=== PATIENT | female | born 1945 | race Hispanic/Latino ===

== ENCOUNTER 2016-08-13 15:40 | Inpatient (IN) | payer MEDICARE, MEDICAID ==
[2016-08-13] MEDS ORDERED: Albuterol-Ipratrop 3 mg / 0.5 (3 ml) UD IH STA ×2 (16:10)
--- NOTE | 2016-08-13 16:18 | ED PDOC ---
HPI: SOB/CHF/COPD Time Seen by Provider: 08/13/16 15:50 Chief Complaint (Nursing): Shortness Of Breath Chief Complaint (Provider): Shortness of Breath/Cough History Per: Patient History/Exam Limitations: no limitations Onset/Duration Of Symptoms: Days (x14) Current Symptoms Are (Timing): Still Present Additional Complaint(s): Aure Duong is a 71 year old female that was brought to the ED via EMS that presents with a chief complaint SOB and a productive cough with clear sputum with associated fever and chills that she has had for the past two weeks. Patient reports that she was initially seen by her PMD and treated for sinus infection/URI with antibiotics with only mild improvement. She denies any chest pain. Past Medical History Reviewed: Historical Data, Nursing Documentation, Vital Signs Vital Signs: Last Vital Signs Temp 98.5 F 08/13/16 15:45 Pulse 82 08/13/16 15:45 Resp 22 08/13/16 16:40 BP 172/103 H 08/13/16 15:45 Pulse Ox 99 08/13/16 16:22 - Medical History PMH: No Chronic Diseases - Family History Family History: States: Unknown Family Hx - Home Medications Home Medications: Ambulatory Orders Medication Instructions Recorded No Known Home Med 08/13/16 - Allergies Allergies/Adverse Reactions: Allergies Allergy/AdvReac Type Severity Reaction Status Date / Time No Known Allergies Allergy Verified 08/13/16 15:45 Review of Systems Constitutional: Positive for: Fever, Chills Cardiovascular: Negative for: Chest Pain Respiratory: Positive for: Cough (Productive with clear sputum), Shortness of Breath Physical Exam - Reviewed Nursing Documentation Reviewed: Yes Vital Signs Reviewed: Yes - Physical Exam Appears: Positive for: Non-toxic, No Acute Distress Head Exam: Positive for: ATRAUMATIC, NORMOCEPHALIC Skin: Positive for: Normal Color, Warm Cardiovascular/Chest: Positive for: Regular Rate, Rhythm. Negative for: Murmur Respiratory: Positive for: Rhonchi, Wheezing (mild expiratory wheezing, left lung greater than right). Negative for: Respiratory Distress Neurologic/Psych: Positive for: Alert, Oriented. Negative for: Motor/Sensory Deficits - Laboratory Results Result Diagrams: 08/13/16 16:34 - ECG O2 Sat by Pulse Oximetry: 99 (RA) Pulse Ox Interpretation: Normal Medical Decision Making Medical Decision Making: Impression: SOB/Cough Plan: * CMP * CBC * VBG Shock Panel * Blood Culture * EKG * Chest X-Ray * Albuterol 3 ml INH * Methylprednisolone 125 mg IVP * Reevaluation Scribe Attestation: Documented by Mary Crisostomo, acting as a scribe for Nakul Pak MD. Provider Scribe Attestation: All medical record entries made by the Scribe were at my direction and personally dictated by me. I have reviewed the chart and agree that the record accurately reflects my personal performance of the history, physical exam, medical decision making, and the department course for this patient. I have also personally directed, reviewed, and agree with the discharge instructions and disposition. Disposition - Clinical Impression Clinical Impression: Bronchitis - Patient ED Disposition Is Patient to be Admitted: Transfer of Care - Disposition Disposition: Transfer of Care Disposition Time: 16:59 Condition: FAIR Patient Signed Over To: Yadi Yen
[2016-08-13 16:49] LABS: ABG ALLEN TEST YES; ARTERIAL BLOOD GAS HCO3 26.4 mmol/L (21-28); ARTERIAL BLOOD GAS PH 7.42 (7.35-7.45); ARTERIAL BLOOD GAS PO2 99 mm/Hg (80-100)
[2016-08-13 16:51] LABS: BASO # 0.1 K/uL (0.0-0.2); BASO % 0.8 % (0.0-2.0); EOS # 0.6 K/uL (0.0-0.7); EOS % 5.9 % (0.0-4.0); HEMATOCRIT 44.7 % (34.0-47.0); LYMPH # 1.5 K/uL (1.0-4.3); LYMPH % 15.2 % (20.0-40.0); MEAN CELL VOLUME 92.2 fl (81.0-99.0); MEAN CORPUSCULAR HEMOGLOBIN 30.3 pg (27.0-31.0); MEAN CORPUSCULAR HGB CONC 32.9 g/dL (33.0-37.0); MEAN PLATELET VOLUME 9.6 fl (7.2-11.7); MONO # 0.7 K/uL (0.0-0.8); MONO % 7.3 % (0.0-10.0); NEUT # 7.1 K/uL (1.8-7.0); NEUT % 70.8 % (50.0-75.0); RED CELL DISTRIBUTION WIDTH 13.5 % (11.5-14.5)
--- NOTE | 2016-08-13 17:08 | ED PDOC ---
- Laboratory Results Result Diagrams: 08/14/16 05:00 08/14/16 05:00 - ECG O2 Sat by Pulse Oximetry: 99 (RA) - Radiology X-Ray: Viewed By Me, Read By Radiologist X-Ray Interpretation: COPD (See [facility] for findings.) Medical Decision Making Medical Decision Makin:00 Patient is signed out to me by Nakul Pak MD pending labs and reevaluation. 18:25 XRay chest read and reviewed by radiologist. FINDINGS: LUNGS: Hyperinflation may be seen in setting of COPD. No focal consolidation. Please note that chest x-ray has limited sensitivity for the detection of pulmonary masses. PLEURA: No significant pleural effusion identified. No definite pneumothorax . CARDIOVASCULAR: Heart size appears within normal limits. OSSEOUS STRUCTURES: Degenerative changes of the spine. Osseous demineralization. Kyphosis. VISUALIZED UPPER ABDOMEN: Unremarkable. OTHER FINDINGS: None. IMPRESSION: Hyperinflation may be seen in setting of COPD. 18:43 Patient states that she feels "shaky". still feesl sob. ordered another neb for her (she had gotten prior nebs and steroids eralier) Chest XRay shows that patient has COPD. Patient will likely be admitted to [facility] fitness sales consultant under Dr. Lau. Dr. Lau is contacted and accepts patient under his service. Scribe Attestation Documented by Ambar Granados, acting as a scribe for Yadi Yen MD. Provider Scribe Attestation: All medical record entries made by the Scribe were at my direction and personally dictated by me. I have reviewed the chart and agree that the record accurately reflects my personal performance of the history, physical exam, medical decision making, and the department course for this patient. I have also personally directed, reviewed, and agree with the discharge instructions and disposition. Disposition Counseled Patient/Family Regarding: Diagnosis - Clinical Impression Clinical Impression: Bronchitis - POA Present On Arrival: None - Disposition Disposition: Admitted as In-Patient Disposition Time: 18:00 Condition: FAIR
[2016-08-13 17:11] LABS: ALB/GLOB RATIO 1.7 (1.0-2.1); ALKALINE PHOSPHATASE 72 U/L (38-126); ALT/SGPT 27 U/L (9-52); AST/SGOT 29 U/L (14-36); BILIRUBIN,TOTAL 0.7 mg/dl (0.2-1.3); BLOOD UREA NITROGEN 11 mg/dl (7-17); CALCIUM 9.6 mg/dL (8.4-10.2); CARBON DIOXIDE 26 mmol/L (22-30); CHLORIDE 104 mmol/L (98-107); GFR AFRICAN-AMERICAN > 60; GLUCOSE,RANDOM 112 mg/dL (65-105); POTASSIUM 3.6 MMOL/L (3.6-5.0); SODIUM 141 mmol/l (132-148); TOTAL PROTEIN 7.6 G/DL (6.3-8.2)
--- NOTE | 2016-08-13 18:26 | RAD ---
HISTORY: cough COMPARISON: None available. TECHNIQUE: Chest PA and lateral FINDINGS: LUNGS: Hyperinflation may be seen in setting of COPD. No focal consolidation. Please note that chest x-ray has limited sensitivity for the detection of pulmonary masses. PLEURA: No significant pleural effusion identified. No definite pneumothorax . CARDIOVASCULAR: Heart size appears within normal limits. OSSEOUS STRUCTURES: Degenerative changes of the spine. Osseous demineralization. Kyphosis. VISUALIZED UPPER ABDOMEN: Unremarkable. OTHER FINDINGS: None. IMPRESSION: Hyperinflation may be seen in setting of COPD.
[2016-08-13] MEDS ORDERED: Albuterol 0.083% Inhal Sol (2.5 mg/3 mL) UD INH ONE (18:58)
[2016-08-13] MEDS ORDERED: Albuterol 0.083% Inhal Sol (2.5 mg/3 mL) UD ONE (19:02)
[2016-08-13] MEDS: Albuterol-Ipratrop 3 mg / 0.5 (3 ml) UD INH SCH (23:28)
[2016-08-14] MEDS ORDERED: methylPREDNISolone 40 MG in Sodium Chloride 0.9% 50 ML IV SCH (01:00)
[2016-08-14] MEDS: Artificial Tears Opht Soln OU PRN ×2 (01:49→10:27)
[2016-08-14] MEDS: Albuterol-Ipratrop 3 mg / 0.5 (3 ml) UD INH SCH ×6 (05:00→23:23)
[2016-08-14 06:48] LABS: BASO % 0.1 % (0.0-2.0); HEMATOCRIT 40.1 % (34.0-47.0); LYMPH # 0.4 K/uL (1.0-4.3); LYMPH % 4.3 % (20.0-40.0); MEAN CELL VOLUME 92.1 fl (81.0-99.0); MEAN CORPUSCULAR HEMOGLOBIN 30.2 pg (27.0-31.0); MEAN CORPUSCULAR HGB CONC 32.8 g/dL (33.0-37.0); MEAN PLATELET VOLUME 10.1 fl (7.2-11.7); MONO # 0.2 K/uL (0.0-0.8); MONO % 1.5 % (0.0-10.0); NEUT # 9.8 K/uL (1.8-7.0); NEUT % 94.1 % (50.0-75.0); PLATELET COUNT 215 K/uL (130-400); RED CELL DISTRIBUTION WIDTH 13.5 % (11.5-14.5); WHITE BLOOD COUNT 10.4 K/uL (4.8-10.8)
[2016-08-14 08:28] LABS: CHLORIDE 103 mmol/L (98-107)
[2016-08-14 08:29] LABS: POTASSIUM 3.7 MMOL/L (3.6-5.0); SODIUM 138 mmol/l (132-148)
[2016-08-14 08:31] LABS: ALB/GLOB RATIO 1.7 (1.0-2.1); AST/SGOT 22 U/L (14-36); BILIRUBIN,TOTAL 0.6 mg/dl (0.2-1.3); BLOOD UREA NITROGEN 9 mg/dl (7-17); CARBON DIOXIDE 25 mmol/L (22-30); CHOLESTEROL 172 mg/dL (0-199); GFR AFRICAN-AMERICAN > 60; GLUCOSE,RANDOM 174 mg/dL (65-105); TOTAL PROTEIN 6.4 G/DL (6.3-8.2)
[2016-08-14 08:32] LABS: ALKALINE PHOSPHATASE 61 U/L (38-126); ALT/SGPT 30 U/L (9-52); CALCIUM 9.3 mg/dL (8.4-10.2)
[2016-08-14 08:44] LABS: RBC URINE 3 /hpf (0-3); URINE BACTERIA RARE (<OCC); URINE BILIRUBIN NEGATIVE (NEGATIVE); URINE BLOOD NEGATIVE (NEGATIVE); URINE COLOR YELLOW (YELLOW); URINE GLUCOSE (UA) 50 mg/dL (Normal); URINE KETONE NEGATIVE (NEGATIVE); URINE LEUKOCYTE ESTERASE SMALL Leu/uL (Negative); URINE PROTEIN NEGATIVE (NEGATIVE); URINE UROBILINOGEN 0.2-1.0 mg/dL (0.2-1.0); WBC URINE 6 /hpf (0-5)
[2016-08-14 08:59] LABS: NEUTROPHIL 92 % (42-75); TOTAL CELLS COUNTED 100
[2016-08-14 09:03] LABS: T4 6.86 ug/dl (5.5-11.0)
[2016-08-14] MEDS: Pantoprazole 40 mg EC Tab PO SCH (09:03)
[2016-08-14 09:17] LABS: THYROID STIMULATING HORMONE 0.27 mIU/ML (0.46-4.68)
--- NOTE | 2016-08-14 13:26 | CARD ---
APPROVED REPORT EKG Measurement Heart [id number] <Conclusion> Normal sinus rhythm Left axis deviation Nonspecific intraventricular block Cannot rule out Septal infarct, age undetermined Possible infarct, age undetermined Abnormal ECG
--- NOTE | 2016-08-14 16:18 | CP.PCM.HP ---
History of Present Illness - History of Present Illness History of Present Illness: CC: SOB. Pt came to ER [facility] for evaluation of increased SOB, onset DOA with no relief. Pt appear c/o of mild SOB x 2 weeks, increased to moderate , FRANCO , associated to productive scant clear thick sputum, worsening symptoms: fever, chills for 2 weeks. Aggravated factor: Dyspnea at rest, current smoker. As per Pt, she was taking abx Rx by her PMD for Sinus infection and URI with very mild improvement. Pt denied: Bloody cough, syncope, dizziness, abdominal pain, n/v/d, CP, suck contact, recent travel. PMHx : COPD , " Heart attack 26 yrs old" CXR showed: COPD. No pleural effusion, pneumothorax or infiltrates. EKG shows: Normal sinus rhythm, cannot rule out septal infarct, age undetermined, possible infarct age undetermined. Present on Admission - Present on Admission Any Indicators Present on Admission: No Review of Systems - Constitutional Constitutional: Chills, Fever - EENT Eyes: Other (negative) Ears: Other (negative) Nose/Mouth/Throat: Other (negative) - Cardiovascular Cardiovascular: Other (negative) - Respiratory Respiratory: Cough, Dyspnea, Dyspnea on Exertion - Gastrointestinal Gastrointestinal: Other (negative) - Genitourinary Genitourinary: Other (negative) - Musculoskeletal Musculoskeletal: Other (negative) - Integumentary Integumentary: Other (negative) - Neurological Neurological: Headaches - Psychiatric Psychiatric: Other (negative) - Endocrine Endocrine: Other (negative) - Hematologic/Lymphatic Hematologic: Other (negative) Past Patient History - Past Medical History & Family History Past Medical History?: Yes Pertinent Family History: Unknown - Past Social History Smoking Status: Current Some Days Smoker Alcohol: None Drugs: Denies Home Situation {Lives}: Alone - CARDIAC Hx Heart Attack: Yes (" Heart Attack 26 yrs old") - PULMONARY Hx Chronic Obstructive Pulmonary Disease (COPD): Yes - NEUROLOGICAL Hx Neurological Disorder: No - HEENT Hx HEENT Problems: No - RENAL Hx Chronic Kidney Disease: No - ENDOCRINE/METABOLIC Hx Endocrine Disorders: No - HEMATOLOGICAL/ONCOLOGICAL Hx Blood Disorders: No - INTEGUMENTARY Hx Dermatological Problems: No - MUSCULOSKELETAL/RHEUMATOLOGICAL Hx Musculoskeletal Disorders: No Hx Falls: No - GASTROINTESTINAL Hx Gastrointestinal Disorders: No - GENITOURINARY/GYNECOLOGICAL Hx Genitourinary Disorders: No - PSYCHIATRIC Hx Psychophysiologic Disorder: No Hx Substance Use: No - SURGICAL HISTORY Hx Surgeries: Yes Hx Herniorrhaphy: Yes Hx Hysterectomy: Yes Hx Tonsillectomy: Yes Other/Comment: "BLADDER SX" - ANESTHESIA Hx Anesthesia: Yes Hx Anesthesia Reactions: No Meds Home Medications: Home Medication List Medication Instructions Recorded Confirmed Type Albuterol HFA [Ventolin HFA 90 2 puff IH [id number] #30 puff 08/14/16 Rx mcg/actuation (8 g)] Fluticasone/Salmeterol 250/50 1 puff IH Q12 #60 puff 08/15/16 Rx [Advair Diskus] Allergies/Adverse Reactions: Allergies Allergy/AdvReac Type Severity Reaction Status Date / Time No Known Allergies Allergy Verified 08/13/16 15:45 Physical Exam - Constitutional Appears: No Acute Distress - Head Exam Head Exam: NORMAL INSPECTION - Eye Exam Eye Exam: PERRL - ENT Exam ENT Exam: Normal Oropharynx - Neck Exam Neck exam: Positive for: Normal Inspection - Respiratory Exam Respiratory Exam: Decreased Breath Sounds, Rhonchi (scattered), Wheezes - Cardiovascular Exam Cardiovascular Exam: REGULAR RHYTHM - GI/Abdominal Exam GI & Abdominal Exam: Normal Bowel Sounds, Soft - Extremities Exam Extremities exam: Positive for: normal inspection - Back Exam Back exam: NORMAL INSPECTION - Neurological Exam Neurological exam: Alert, Oriented x3 Additional comments: No motor sensory deficit. - Psychiatric Exam Psychiatric exam: Normal Mood - Skin Skin Exam: Warm Results - Vital Signs Recent Vital Signs: Last Vital Signs Temp 98.5 F 08/14/16 12:15 Pulse 85 08/14/16 12:15 Resp 20 08/14/16 12:15 BP 135/67 08/14/16 12:15 Pulse Ox 94 L 08/14/16 12:15 reviewed J.P. - Labs Result Diagrams: 08/14/16 05:00 08/14/16 05:00 Labs: reviewed J.P. - EKG Data EKG comments: reviewed J.P. - Imaging and Cardiology Chest x-ray Status: Report reviewed by me (Guadalupe) Assessment & Plan (1) COPD (chronic obstructive pulmonary disease) Status: Acute Priority: High (2) Headache Status: Resolved Priority: High (3) CAD (coronary artery disease) Status: Acute (4) CAD (coronary artery disease) Status: Chronic - Assessment and Plan (Free Text) Plan: Patient was shaky with Solu Medrol in ER and it was DC, f/u Blood C-S, continue Duoneb, Pulmicort, Motrin and rest of Tx, abnormal EKG , f/u ECHO , Cardiology consult. - Date & Time Date: 08/14/16 Time: 11:50
--- NOTE | 2016-08-14 18:06 | CARD ---
APPROVED REPORT EXAM: Two-dimensional and M-mode echocardiogram with Doppler and color Doppler. Other Information Quality : AverageRhythm : NSR INDICATION Abnormal EKG/Arrhythmia Pulmonary Hypertention 2D DIMENSIONS IVSd1.74 (0.7-1.1cm)LVDd3.91 (3.9-5.9cm) LVOT Diameter2.52 (1.8-2.4cm)PWd1.03 (0.7-1.1cm) IVSs1.67 (0.8-1.2cm)LVDs1.88 (2.5-4.0cm) FS (%) 52.0 %PWs1.51 (0.8-1.2cm) M-Mode DIMENSIONS Left Atrium (MM)3.14 (2.5-4.0cm)IVSd1.35 (0.7-1.1cm) Aortic Root3.36 (2.2-3.7cm)LVDd4.33 (4.0-5.6cm) Aortic Cusp Exc.2.15 (1.5-2.0cm)PWd1.32 (0.7-1.1cm) IVSs2.15 cmFS (%) 53 % LVDs2.04 (2.0-3.8cm)PWs1.74 cm Mitral Valve MV E Myfzwccb61.2cm/sMV DECEL [id number] A Sajffvux04.8cm/s MV HDQ54ndI/A ratio0.9MVA (PHT)2.46cm2 TDI Lateral E' Peak V7.50cm/sMedial E' Peak V7.33cm/sE/Lateral E'10.6 E/Medial E'10.8 LEFT VENTRICLE The left ventricle is normal size. There is normal left ventricular wall thickness. The left ventricular function is normal. The left ventricular ejection fraction is - 75%. There is normal LV segmental wall motion. Transmitral Doppler flow pattern is abnormal. No left ventricle thrombus noted on this study. There is no ventricular septal defect visualized. There is no left ventricular aneurysm. There is no mass noted in the left ventricle. RIGHT VENTRICLE The right ventricle is normal size. There is normal right ventricular wall thickness. The right ventricular systolic function is normal. ATRIA The left atrium size is normal. There is no thrombus suspected in the left atrium. The right atrium size is normal. The interatrial septum is intact with no evidence for an atrial septal defect. AORTIC VALVE The aortic valve is normal in structure and function. No aortic regurgitation is present. There is no aortic valvular stenosis. MITRAL VALVE The mitral valve is normal in structure and function. There is no evidence of mitral valve prolapse. There is no mitral valve stenosis. There is no mitral valve regurgitation noted. TRICUSPID VALVE The tricuspid valve is normal in structure and function. There is no tricuspid valve regurgitation noted. There is no tricuspid valve prolapse or vegetation. There is no tricuspid valve stenosis. PULMONIC VALVE The pulmonary valve is normal in structure and function. Doppler studies of the PV were not performed. GREAT VESSELS The aortic root is normal in size. The IVC is normal in size and collapses >50% with inspiration. PERICARDIAL EFFUSION The pericardium appears normal. There is no pleural effusion. <Conclusion> The left ventricle is normal in size and wall thickness on the 2D study. The left ventricular function is normal. The left ventricular ejection fraction is - 75%. The left atrium size, right ventricle and right atrium are normal in size. The mitral, aortic and tricuspid valves are normal.
--- NOTE | 2016-08-14 18:59 | CON ---
DATE: 08/14/2016 REASON FOR CONSULTATION: Shortness of breath. HISTORY OF PRESENT ILLNESS: The patient is a 71-year-old female who is a smoker, presented because o f shortness of breath and productive cough as well as fever and chills. The patient, when asked abou t cardiac history, she states she had a heart attack at age 26, but is unaware of any recent cardiac issues. The patient denies any retrosternal chest pain at this time. SOCIAL HISTORY: The patient is a smoker, social drinker. MEDICATIONS: The patient was not on any medications at home. CURRENT HOSPITAL MEDICATIONS: Motrin 600 mg q. 8 hours, Protonix 40 mg p.o. once a day, Pulmicort 0 .25 mg inhalation twice a day. REVIEW OF SYSTEMS: No vomiting or diarrhea. No headache or blurry vision. No recent dizziness or s yncope. PHYSICAL EXAMINATION: GENERAL: The patient is an elderly female who does not appear to be in any distress. VITAL SIGNS: Blood pressure 135/67, heart rate 85, temperature 98.5, respirations 20. HEENT: Normocephalic. NECK: No JVD. CHEST: Diffuse bilateral rhonchi. HEART: S1, S2 regular. ABDOMEN: Soft. EXTREMITIES: No edema. LABORATORY DATA: Hemoglobin and hematocrit 13.1 and 40.1, white count and platelet count are within normal limits. SMA-7: Sodium 138, potassium 3.7, chloride 103, CO2 25, glucose 174, BUN 9, creatini ne 0.5. TSH level below normal at 0.27 and thyroxine T4 is within normal limits. EKG reveals sinus rhythm at a rate of 80, incomplete right bundle branch block, possible inferior infarct of indetermin ate age. Chest x-ray revealed COPD picture, normal cardiac silhouette. ASSESSMENT: 1. Exacerbation of chronic obstructive lung disease. 2. Abnormal EKG with evidence of incomplete right bundle branch block as well as possible inferior w all myocardial infarction. RECOMMENDATIONS: Continue current albuterol inhaler as well as Pulmicort inhaler and oral Protonix. I will review the echocardiographic study performed today. The patient was advised to abstain from smoking. Tremaine Villavicencio MD cc: [id number] TT: 08/14/2016 18:58:30 Confirmation # [id number] Dictation # [id number] jn
[2016-08-14] MEDS: Budesonide 0.25 mg/2 ml Inhal Susp UD INH SCH (19:08)
[2016-08-15] MEDS: Albuterol-Ipratrop 3 mg / 0.5 (3 ml) UD INH SCH ×5 (05:18→19:09)
[2016-08-15] MEDS: Budesonide 0.25 mg/2 ml Inhal Susp UD INH SCH ×2 (07:44→19:08)
[2016-08-15] MEDS: Pantoprazole 40 mg EC Tab PO SCH (08:34)
--- NOTE | 2016-08-15 11:58 | PN ---
DATE: 08/15/2016 The patient denies retrosternal chest pain. PHYSICAL EXAMINATION: VITAL SIGNS: Blood pressure 120/68, heart rate 75, temperature 98.4, respirations 20. HEENT: Normocephalic. NECK: No JVD. CHEST: Minimal rhonchi. HEART: S1, S2 regular. EXTREMITIES: No edema. LABORATORIES: Echocardiographic study revealed normal left ventricular size and wall thickness, ejec tion fraction of 75%, normal right atrial and left ventricular dimensions, normal mitral, aortic and tricuspid valves. ASSESSMENT: 1. Exacerbation of chronic obstructive lung disease. 2. Abnormal EKG with evidence of old inferior infarct and nonspecific intraventricular conduction de lay. RECOMMENDATIONS: Continue current Protonix and Pulmicort as well as albuterol inhaler. The patient was advised to abstain from future smoking. No invasive cardiac workup is justified. Tremaine Villavicencio MD cc: [id number] TT: 08/15/2016 11:58:09 Confirmation # [id number] Dictation # [id number] patsy
[2016-08-15 16:09] VITALS: RESP 18; O2SAT 95
--- NOTE | 2016-08-15 17:00 | CP.PCM.PN ---
Subjective - Date & Time of Evaluation Date of Evaluation: 08/15/16 Time of Evaluation: 11:30 - Subjective Subjective: F/U COPD No SOB , no Chest congestion , no cough , no headache Objective - Vital Signs/Intake and Output Vital Signs (last 24 hours): Temp Pulse Resp BP Pulse Ox 98.7 F 76 18 123/73 95 08/15/16 16:08 08/15/16 16:08 08/15/16 16:08 08/15/16 16:08 08/15/16 16:08 Intake and Output: 08/15/16 08/15/16 06:59 18:59 Intake Total 250 Balance 250 - Medications Medications: Current Medications Albuterol/Ipratropium (Duoneb 3 Mg/0.5 Mg (3 Ml) Ud) 3 ml INH RQ4 [facility] Last Admin: 08/15/16 15:40 Dose: 3 ml Artificial Tears (Artificial Tears) 2 drop OU Q4 PRN PRN Reason: Dry eyes Last Admin: 08/14/16 10:27 Dose: 2 drop Budesonide (Pulmicort Respules) 0.25 mg INH RBID [facility] Last Admin: 08/15/16 07:44 Dose: 0.25 mg Ibuprofen (Motrin Tab) 600 mg PO Q8 PRN PRN Reason: Headache Last Admin: 08/14/16 10:26 Dose: 600 mg Pantoprazole Sodium (Protonix Ec Tab) 40 mg PO DAILY [facility] Last Admin: 08/15/16 08:34 Dose: 40 mg - Constitutional Appears: No Acute Distress - Head Exam Head Exam: NORMAL INSPECTION - Eye Exam Eye Exam: PERRL - ENT Exam ENT Exam: Normal Oropharynx - Neck Exam Neck Exam: Normal Inspection - Respiratory Exam Respiratory Exam: Decreased Breath Sounds (at bases) - Cardiovascular Exam Cardiovascular Exam: REGULAR RHYTHM - GI/Abdominal Exam GI & Abdominal Exam: Soft, Normal Bowel Sounds - Extremities Exam Extremities Exam: Normal Inspection - Back Exam Back Exam: NORMAL INSPECTION - Neurological Exam Neurological Exam: Alert, Oriented x3. absent: Motor Sensory Deficit - Psychiatric Exam Psychiatric exam: Normal Mood - Skin Skin Exam: Warm Assessment and Plan (1) COPD (chronic obstructive pulmonary disease) Status: Acute (2) CAD (coronary artery disease) Status: Chronic - Assessment and Plan (Free Text) Plan: ECHO LV normal , LVEF 75%, EKG Ols IMI, intraventricular conduction delay , no invasive cardiac work up advised , cleared by Physician Practice Market Manager , smoking cessation discussed with Patient , improved stable to be discharged , see inst/med sheet, f/u PMD next week.
[2016-08-15 20:15] VITALS: BP 134/78; PULSE 82; TEMP 98.4
== END 2016-08-15 21:45 | disposition home or self-care (01) | DRG 192 ==
LOC: H.ER 15:40 → H.ERHOLD 18:41 → H.TEL 20:42 → OBSVTOIN 08-14 14:20
PROVIDERS: ADMIT Internal Medicine Pulmonary Disease; ATTEND Internal Medicine Pulmonary Disease
PROC: 3E0F7GC Introduction of Other Therapeutic Substance into Respiratory Tract, Via Natural or Artificial Opening (ICD-10-PCS; principal; 2016-08-13)
DX: J44.1 Chronic obstructive pulmonary disease with (acute) exacerbation (principal); I45.10 Unspecified right bundle-branch block; F17.200 Nicotine dependence, unspecified, uncomplicated; I25.10 Atherosclerotic heart disease of native coronary artery without angina pectoris; I25.2 Old myocardial infarction; J06.9 Acute upper respiratory infection, unspecified; Z79.51 Long term (current) use of inhaled steroids; Z90.710 Acquired absence of both cervix and uterus

== ENCOUNTER 2016-09-09 16:02 | Emergency (ER) | payer MEDICARE, MEDICAID ==
[2016-09-09 16:27] VITALS: BMI 27.4
[2016-09-09] MEDS ORDERED: Albuterol-Ipratrop 3 mg / 0.5 (3 ml) UD INH STA (16:51)
[2016-09-09] MEDS ORDERED: Albuterol-Ipratrop 3 mg / 0.5 (3 ml) UD ONE ×2 (17:08→17:16)
--- NOTE | 2016-09-09 17:09 | ED PDOC ---
HPI: SOB/CHF/COPD Time Seen by Provider: 09/09/16 16:41 Chief Complaint (Nursing): Shortness Of Breath Chief Complaint (Provider): shortness of breath History Per: Patient Onset/Duration Of Symptoms: Days (6), Gradual, Persistent Current Symptoms Are (Timing): Still Present Quality: Tightness Exacerbating Factor(s): Exertion Associated Symptoms: Chills, Light-headedness, Anxiety. denies: Fever Additional Complaint(s): Started 2 days after receiving a vaccine for pneumonia Also reports that she feels anxious Past Medical History Reviewed: Historical Data, Nursing Documentation, Vital Signs Vital Signs: Last Vital Signs Temp 98 F 09/09/16 17:24 Pulse 70 09/09/16 17:24 Resp 20 09/09/16 17:24 BP 154/94 H 09/09/16 17:24 Pulse Ox 95 09/09/16 18:09 - Medical History PMH: COPD Denies: Chronic Kidney Disease - Surgical History Surgical History: Tonsillectomy - Family History Family History: States: Unknown Family Hx - Social History Current smoker - smoking cessation education provided: Yes - Home Medications Home Medications: Ambulatory Orders Medication Instructions Recorded Albuterol HFA [Ventolin HFA 90 2 puff IH [id number] #30 puff 08/14/16 mcg/actuation (8 g)] Fluticasone/Salmeterol 250/50 1 puff IH Q12 #60 puff 08/15/16 [Advair Diskus] Prednisone 50 mg PO DAILY #4 tablet 09/09/16 - Allergies Allergies/Adverse Reactions: Allergies Allergy/AdvReac Type Severity Reaction Status Date / Time No Known Allergies Allergy Verified 08/13/16 15:45 Review of Systems ROS Statement: Except As Marked, All Systems Reviewed And Found Negative (and as per HPI) Constitutional: Positive for: Chills. Negative for: Weakness, Malaise Cardiovascular: Positive for: Chest Pain, Light Headedness Respiratory: Positive for: Cough, Shortness of Breath Gastrointestinal: Positive for: Nausea Psych: Positive for: Anxiety Physical Exam - Reviewed Nursing Documentation Reviewed: Yes Vital Signs Reviewed: Yes - Physical Exam Appears: Positive for: Non-toxic, In Acute Distress Head Exam: Positive for: ATRAUMATIC, NORMOCEPHALIC Skin: Positive for: Warm, Dry Eye Exam: Positive for: EOMI, PERRL ENT: Positive for: Other (dry muc membranes) Neck: Positive for: Painless ROM, Supple Cardiovascular/Chest: Positive for: Regular Rate, Rhythm. Negative for: Murmur Respiratory: Positive for: Wheezing, Respiratory Distress (mild). Negative for : Accessory Muscle Use Gastrointestinal/Abdominal: Positive for: Soft. Negative for: Tenderness Back: Positive for: Normal Inspection. Negative for: Vertebral Tenderness Extremity: Positive for: Normal ROM. Negative for: Pedal Edema, Calf Tenderness Lymphatic: Negative for: Adenopathy Neurologic/Psych: Positive for: Alert. Negative for: Motor/Sensory Deficits - Laboratory Results Result Diagrams: 09/09/16 16:30 09/09/16 16:30 - ECG O2 Sat by Pulse Oximetry: 95 - Radiology X-Ray: Read By Radiologist X-Ray Interpretation: No Acute Disease Medical Decision Making Medical Decision Making: Accession No. : [id number] Patient Name / ID : RADHA BRIAN / [id number] Exam Date : 09/09/2016 17:14:52 ( Approved ) Study Comment : Sex / Age : F / 71Y Creator : Kirk Lamb MD Dictator : Kirk Lamb MD Potato Spotter : Bmet : Kirk Lamb MD Approver2 : Report Date : 09/09/2016 17:47:56 My Comment : HISTORY: Shortness of breath. COMPARISON: 08/13/2016 FINDINGS: LUNGS: No active pulmonary disease. PLEURA: No significant pleural effusion identified, no pneumothorax apparent. CARDIOVASCULAR: No radiographic findings to suggest acute or significant cardiovascular disease. OSSEOUS STRUCTURES: No significant abnormalities. VISUALIZED UPPER ABDOMEN: Normal. OTHER FINDINGS: None. IMPRESSION: No active disease. No significant interval change compared to the prior examination(s). 6p On reeval pt feels a lot better, despite minimal improvement in peak flow. Pt reports that she has never had good peak flow measurements. Disposition - Clinical Impression Clinical Impression: COPD exacerbation Counseled Patient/Family Regarding: Studies Performed, Diagnosis, Need For Followup, Rx Given, Smoking Cessation - Disposition Referrals: [facility] [Outside] - 09/11/16 Disposition: Routine/Home Disposition Time: 18:30 Condition: IMPROVED Prescriptions: Prednisone 50 mg PO DAILY #4 tablet Instructions: COPD (Chronic Obstructive Pulmonary Disease) (ED), How to Stop Smoking (ED)
[2016-09-09 17:17] LABS: BASO # 0.1 K/uL (0.0-0.2); BASO % 1.1 % (0.0-2.0); EOS # 0.7 K/uL (0.0-0.7); EOS % 8.7 % (0.0-4.0); HEMOGLOBIN 13.5 g/dL (12.0-16.0); LYMPH # 1.5 K/uL (1.0-4.3); LYMPH % 19.4 % (20.0-40.0); MEAN CELL VOLUME 92.8 fl (81.0-99.0); MEAN CORPUSCULAR HEMOGLOBIN 30.2 pg (27.0-31.0); MEAN CORPUSCULAR HGB CONC 32.6 g/dL (33.0-37.0); MEAN PLATELET VOLUME 9.1 fl (7.2-11.7); MONO # 0.7 K/uL (0.0-0.8); MONO % 8.8 % (0.0-10.0); NEUT # 4.9 K/uL (1.8-7.0); RBC 4.47 Mil/uL (3.80-5.20); RED CELL DISTRIBUTION WIDTH 13.6 % (11.5-14.5); WHITE BLOOD COUNT 7.9 K/uL (4.8-10.8)
[2016-09-09 17:17] LABS: ABG ALLEN TEST YES; ARTERIAL BLOOD GAS HCO3 27.8 mmol/L (21-28); ARTERIAL BLOOD GAS O2 SAT 100.1 % (95-98); ARTERIAL BLOOD GAS PCO2 39 mm/Hg (35-45); ARTERIAL BLOOD GAS PH 7.46 (7.35-7.45); ARTERIAL BLOOD GAS PO2 89 mm/Hg (80-100); ARTERIAL BLOOD GAS TCO2 28.9 mmol/L (22-28)
[2016-09-09 17:29] VITALS: RESP 20; TEMP 98
[2016-09-09 17:32] LABS: ALB/GLOB RATIO 1.8 (1.0-2.1); ALBUMIN 4.5 g/dL (3.5-5.0); ALT/SGPT 33 U/L (9-52); AST/SGOT 27 U/L (14-36); BLOOD UREA NITROGEN 11 mg/dl (7-17); CALCIUM 9.2 mg/dL (8.4-10.2); GFR AFRICAN-AMERICAN > 60; GFR NON-AFRICAN AMERICAN > 60; MAGNESIUM 2.4 MG/DL (1.6-2.3)
[2016-09-09 17:40] LABS: PARTIAL THROMBOPLASTIN TIME 30.4 Seconds (25.6-37.1)
[2016-09-09 17:43] LABS: B-TYPE NATRIURETIC PEPTIDE 50.6 pg/ml (0-900)
--- NOTE | 2016-09-09 17:49 | RAD ---
HISTORY: Shortness of breath. COMPARISON: 08/13/2016 FINDINGS: LUNGS: No active pulmonary disease. PLEURA: No significant pleural effusion identified, no pneumothorax apparent. CARDIOVASCULAR: No radiographic findings to suggest acute or significant cardiovascular disease. OSSEOUS STRUCTURES: No significant abnormalities. VISUALIZED UPPER ABDOMEN: Normal. OTHER FINDINGS: None. IMPRESSION: No active disease. No significant interval change compared to the prior examination(s).
[2016-09-09 18:58] VITALS: BP 154/80; PULSE 78
[2016-09-09 19:01] VITALS: O2SAT 95
--- NOTE | 2016-09-10 07:31 | CARD ---
APPROVED REPORT EKG Measurement Heart [id number] [id number] <Conclusion> Sinus rhythm with frequent premature ventricular complexes Incomplete right bundle branch block Septal infarct, age undetermined Inferior infarct, age undetermined Abnormal ECG
== END 2016-09-09 18:58 | disposition home or self-care (01) ==
LOC: H.ER 16:02
DX: J44.1 Chronic obstructive pulmonary disease with (acute) exacerbation (principal)
CPT/HCPCS: 36600; 71010; 80053; 82803; 83735; 83880; 84100; 84484; 85025; 85610; 85730; 87040; 93005; 96374; 99284; J2930

== ENCOUNTER 2016-12-13 12:13 | Emergency (ER) | payer MEDICARE, MEDICAID ==
[2016-12-13 12:13] VITALS: BMI 27.4
[2016-12-13 12:32] VITALS: BP 169/87; PULSE 83; RESP 16; TEMP 99; O2SAT 99
[2016-12-13] MEDS ORDERED: Albuterol-Ipratrop 3 mg / 0.5 (3 ml) UD INH STA ×3 (12:58→15:14)
[2016-12-13 13:36] LABS: ALB/GLOB RATIO 1.6 (1.0-2.1); ALKALINE PHOSPHATASE 52 U/L (38-126); ALT/SGPT 25 U/L (9-52); AST/SGOT 33 U/L (14-36); BILIRUBIN,TOTAL 0.8 mg/dl (0.2-1.3); BLOOD UREA NITROGEN 14 mg/dl (7-17); CALCIUM 9.5 mg/dL (8.4-10.2); CARBON DIOXIDE 22 mmol/L (22-30); CHLORIDE 107 mmol/L (98-107); GFR AFRICAN-AMERICAN > 60; GLUCOSE,RANDOM 123 mg/dL (65-105); SODIUM 141 mmol/l (132-148); TOTAL PROTEIN 7.6 G/DL (6.3-8.2)
--- NOTE | 2016-12-13 13:42 | ED PDOC ---
HPI: SOB/CHF/COPD Time Seen by Provider: 12/13/16 12:30 Chief Complaint (Nursing): Shortness Of Breath Chief Complaint (Provider): Shortness Of Breath History Per: Patient History/Exam Limitations: no limitations Additional Complaint(s): 71 y/o female with a past medical history of chronic obstructive pulmonary disease (COPD) who presents to the emergency department with shortness of breath x3 days. Reports she was seen at the urgent care yesterday, given steroid shots, and prescribed medication that she had not filled yet. Admits she still smokes. Denies fever, chest pain, or cough. Past Medical History Reviewed: Historical Data, Nursing Documentation, Vital Signs Vital Signs: Last Vital Signs Temp 99.0 F 12/13/16 12:30 Pulse 83 12/13/16 12:30 Resp 16 12/13/16 12:30 BP 169/87 H 12/13/16 12:30 Pulse Ox 99 12/13/16 15:04 - Medical History PMH: COPD Denies: Chronic Kidney Disease - Surgical History Surgical History: Tonsillectomy - Family History Family History: States: Unknown Family Hx - Social History Current smoker - smoking cessation education provided: Yes Alcohol: None Drugs: Denies - Home Medications Home Medications: Ambulatory Orders Medication Instructions Recorded Albuterol HFA [Ventolin HFA 90 2 puff IH [id number] #30 puff 08/14/16 mcg/actuation (8 g)] Fluticasone/Salmeterol 250/50 1 puff IH Q12 #60 puff 08/15/16 [Advair Diskus] Prednisone 50 mg PO DAILY #4 tablet 09/09/16 - Allergies Allergies/Adverse Reactions: Allergies Allergy/AdvReac Type Severity Reaction Status Date / Time No Known Allergies Allergy Verified 08/13/16 15:45 Review of Systems ROS Statement: Except As Marked, All Systems Reviewed And Found Negative Constitutional: Negative for: Fever Cardiovascular: Negative for: Chest Pain Respiratory: Positive for: Shortness of Breath. Negative for: Cough Physical Exam - Reviewed Nursing Documentation Reviewed: Yes Vital Signs Reviewed: Yes - Physical Exam Appears: Positive for: Non-toxic, No Acute Distress Head Exam: Positive for: ATRAUMATIC, NORMAL INSPECTION Skin: Positive for: Normal Color, Warm, Dry Cardiovascular/Chest: Positive for: Regular Rate, Rhythm. Negative for: Murmur Respiratory: Positive for: Wheezing (minimal b/l wheezing). Negative for: Normal Breath Sounds, Accessory Muscle Use, Respiratory Distress Extremity: Positive for: Normal ROM. Negative for: Pedal Edema Neurologic/Psych: Positive for: Alert, Oriented (x3), Other (speaking full sentences) - Laboratory Results Result Diagrams: 12/13/16 13:19 12/13/16 13:19 - ECG O2 Sat by Pulse Oximetry: 99 (RA) Pulse Ox Interpretation: Normal Medical Decision Making Medical Decision Making: Time: 1258 Initial Impression: Chronic Obstructive Pulmonary Disease (COPD) Initial Plan: --EKG --CMP --CBC w/ differential --Chest x-ray --Duoneb 3 ml INH --Methylprednisolone 125 mg --Reevaluation --Patient refusing IV line. CMP & CBC w/ diff canceled. --Pending chest x-ray Time: 14:34 Chest x-ray Results FINDINGS: LUNGS: No active pulmonary disease. PLEURA: No significant pleural effusion identified, no pneumothorax apparent. CARDIOVASCULAR: Aorta and heart are unchanged. OSSEOUS STRUCTURES: No significant abnormalities. VISUALIZED UPPER ABDOMEN: Normal. OTHER FINDINGS: None. IMPRESSION: No active disease. Scribe Attestation: Documented by Francine Hensley, acting as a scribe for Shannon Gupta MD. Provider Scribe Attestation: All medical record entries made by the Scribe were at my direction and personally dictated by me. I have reviewed the chart and agree that the record accurately reflects my personal performance of the history, physical exam, medical decision making, and the department course for this patient. I have also personally directed, reviewed, and agree with the discharge instructions and disposition. Scribe Attestation: Documented by Tracy Elizabeth, acting as a scribe for Shannon Vann Provider Scribe Attestation: All medical record entries made by the Scribe were at my direction and personally dictated by me. I have reviewed the chart and agree that the record accurately reflects my personal performance of the history, physical exam, medical decision making, and the department course for this patient. I have also personally directed, reviewed, and agree with the discharge instructions and disposition. Disposition - Clinical Impression Clinical Impression: COPD exacerbation - Disposition Referrals: LTAC, [facility] within [facility] [Outside] Disposition: Routine/Home Disposition Time: 16:19 Condition: STABLE Additional Instructions: FILL YOUR PRESCRIPTIONS. Instructions: COPD (Chronic Obstructive Pulmonary Disease) (ED) Forms: [employer] (Macedonian)
[2016-12-13 13:43] LABS: POTASSIUM 5.1 MMOL/L (3.6-5.0)
[2016-12-13 13:56] LABS: BASO % 0.4 % (0.0-2.0); EOS # 0.4 K/uL (0.0-0.7); EOS % 3.9 % (0.0-4.0); HEMATOCRIT 45.1 % (34.0-47.0); LYMPH % 10.8 % (20.0-40.0); MEAN CORPUSCULAR HEMOGLOBIN 31.6 pg (27.0-31.0); MEAN CORPUSCULAR HGB CONC 32.9 g/dL (33.0-37.0); MEAN PLATELET VOLUME 9.4 fl (7.2-11.7); MONO # 0.7 K/uL (0.0-0.8); MONO % 7.4 % (0.0-10.0); NEUT # 7.3 K/uL (1.8-7.0); NEUT % 77.5 % (50.0-75.0); NRBC % 0.2 % (0.0-0.0); RED CELL DISTRIBUTION WIDTH 13.5 % (11.5-14.5); WHITE BLOOD COUNT 9.4 K/uL (4.8-10.8)
--- NOTE | 2016-12-13 14:35 | RAD ---
HISTORY: SOB COMPARISON: 09/09/2016 FINDINGS: LUNGS: No active pulmonary disease. PLEURA: No significant pleural effusion identified, no pneumothorax apparent. CARDIOVASCULAR: Aorta and heart are unchanged. OSSEOUS STRUCTURES: No significant abnormalities. VISUALIZED UPPER ABDOMEN: Normal. OTHER FINDINGS: None. IMPRESSION: No active disease.
--- NOTE | 2016-12-15 10:53 | CARD ---
APPROVED REPORT EKG Measurement Heart [id number] <Conclusion> Normal sinus rhythm Left axis deviation RSR' or QR pattern in V1 suggests right ventricular conduction delay Inferior infarct, age undetermined Cannot rule out Anteroseptal infarct, age undetermined Abnormal ECG
== END 2016-12-13 16:30 | disposition home or self-care (01) ==
LOC: H.ER 12:13
DX: J44.1 Chronic obstructive pulmonary disease with (acute) exacerbation (principal); F17.200 Nicotine dependence, unspecified, uncomplicated
CPT/HCPCS: 71010; 80053; 85025; 93005; 94150; 94640; 96374; 99284; J2930

== ENCOUNTER 2017-03-25 14:19 | Observation (INO) | payer MEDICARE, MEDICAID ==
[2017-03-25 14:19] VITALS: BMI 27.4
[2017-03-25] MEDS ORDERED: Albuterol-Ipratrop 3 mg / 0.5 (3 ml) UD INH STA ×3 (15:30→18:12)
[2017-03-25] MEDS ORDERED: Albuterol-Ipratrop 3 mg / 0.5 (3 ml) UD ONE ×3 (15:35→18:22)
--- NOTE | 2017-03-25 15:58 | RAD ---
HISTORY: SOB COMPARISON: 12/13/2016 FINDINGS: LUNGS: No active pulmonary disease. PLEURA: No significant pleural effusion identified, no pneumothorax apparent. CARDIOVASCULAR: Normal. Tortuous thoracic aorta as before OSSEOUS STRUCTURES: No significant abnormalities. VISUALIZED UPPER ABDOMEN: Normal. OTHER FINDINGS: None. IMPRESSION: No active disease.
[2017-03-25 16:00] LABS: BASO % 0.7 % (0.0-2.0); EOS # 0.3 K/uL (0.0-0.7); EOS % 4.5 % (0.0-4.0); HEMOGLOBIN 14.5 g/dL (12.0-16.0); LYMPH # 1.3 K/uL (1.0-4.3); LYMPH % 17.7 % (20.0-40.0); MEAN CELL VOLUME 93.1 fl (81.0-99.0); MEAN CORPUSCULAR HEMOGLOBIN 31.2 pg (27.0-31.0); MEAN CORPUSCULAR HGB CONC 33.5 g/dL (33.0-37.0); MONO # 0.6 K/uL (0.0-0.8); MONO % 8.3 % (0.0-10.0); NEUT % 68.8 % (50.0-75.0); RBC 4.64 Mil/uL (3.80-5.20); RED CELL DISTRIBUTION WIDTH 13.5 % (11.5-14.5); WHITE BLOOD COUNT 7.3 K/uL (4.8-10.8)
[2017-03-25 16:10] LABS: ALB/GLOB RATIO 1.7 (1.0-2.1); ALBUMIN 4.5 g/dL (3.5-5.0); ALT/SGPT 36 U/L (9-52); AST/SGOT 30 U/L (14-36); BLOOD UREA NITROGEN 9 mg/dl (7-17); CALCIUM 9.6 mg/dL (8.4-10.2); GFR AFRICAN-AMERICAN > 60; GFR NON-AFRICAN AMERICAN > 60
--- NOTE | 2017-03-25 16:10 | ED PDOC ---
HPI: SOB/CHF/COPD Time Seen by Provider: 03/25/17 15:17 Chief Complaint (Nursing): Shortness Of Breath Chief Complaint (Provider): Shortness of Breath History Per: Patient History/Exam Limitations: no limitations Onset/Duration Of Symptoms: Days (x 2) Current Symptoms Are (Timing): Still Present Additional Complaint(s): Aure is a 72 y/o female with a history of COPD who presents to the ED c/o shortness of breath for the past 2 days unrelieved by Ventalin at home. Patient also complains of a nonproductive cough but denies fever, chest pain, or palpitations. PMD: None Past Medical History Reviewed: Historical Data, Nursing Documentation, Vital Signs Vital Signs: Last Vital Signs Temp 97.9 F 03/25/17 14:30 Pulse 89 03/25/17 18:22 Resp 16 03/25/17 18:22 BP 182/88 H 03/25/17 18:22 Pulse Ox 97 03/25/17 18:45 - Medical History PMH: COPD Denies: Chronic Kidney Disease - Surgical History Surgical History: Tonsillectomy - Family History Family History: States: Unknown Family Hx - Social History Current smoker - smoking cessation education provided: No Ex-Smoker (has not smoked in the last 12 months): No - Home Medications Home Medications: Ambulatory Orders Medication Instructions Recorded Albuterol HFA [Ventolin HFA 90 2 puff IH [id number] #30 puff 08/14/16 mcg/actuation (8 g)] Fluticasone/Salmeterol 250/50 1 puff IH Q12 #60 puff 08/15/16 [Advair Diskus] Prednisone 50 mg PO DAILY #4 tablet 09/09/16 Albuterol 0.083% [Albuterol 0.083% 3 ml IH Q6H PRN #30 neb 03/25/17 Inhal Kasandra (2.5 mg/3 ml) UD] Albuterol HFA [Ventolin HFA 90 2 puff IH [id number] PRN #1 bottle 03/25/17 mcg/actuation (8 g)] Nebulizer [Compact Compressor 1 dev XX PRN PRN #1 dev 03/25/17 Nebulizer] Prednisone 50 mg PO DAILY #4 tab 03/25/17 - Allergies Allergies/Adverse Reactions: Allergies Allergy/AdvReac Type Severity Reaction Status Date / Time No Known Allergies Allergy Verified 08/13/16 15:45 Review of Systems ROS Statement: Except As Marked, All Systems Reviewed And Found Negative Constitutional: Negative for: Fever Cardiovascular: Negative for: Chest Pain, Palpitations Respiratory: Positive for: Cough (non-productive), Shortness of Breath Physical Exam - Reviewed Nursing Documentation Reviewed: Yes Vital Signs Reviewed: Yes - Physical Exam Appears: Positive for: Well, Non-toxic, No Acute Distress Skin: Positive for: Normal Color, Warm, Dry Eye Exam: Positive for: Normal appearance Neck: Positive for: Normal, Painless ROM, Supple Cardiovascular/Chest: Positive for: Regular Rate, Rhythm. Negative for: Murmur Respiratory: Positive for: Wheezing (minimal b/l) Gastrointestinal/Abdominal: Positive for: Normal Exam, Bowel Sounds, Soft. Negative for: Tenderness Extremity: Positive for: Normal ROM. Negative for: Pedal Edema, Swelling Neurologic/Psych: Positive for: Alert, Oriented - Laboratory Results Result Diagrams: 03/25/17 15:30 03/25/17 15:30 - ECG Interpretation Of ECG: NSR @ 71, LAFB, no ST-T changes, Q waves III, aVF. O2 Sat by Pulse Oximetry: 97 (RA) Pulse Ox Interpretation: Normal Medical Decision Making Medical Decision Making: Time: 15:29 Initial Impression: COPD exacerbation Initial Plan: --EKG --CMP --CBC --Chest XR --Duoneb --SOLU-Medrol --Blood Culture Time: 15:38 CHEST XR FINDINGS: LUNGS: No active pulmonary disease. PLEURA: No significant pleural effusion identified, no pneumothorax apparent. CARDIOVASCULAR: Normal. Tortuous thoracic aorta as before OSSEOUS STRUCTURES: No significant abnormalities. VISUALIZED UPPER ABDOMEN: Normal. OTHER FINDINGS: None. IMPRESSION: No active disease. Time: 16:53 --Second duoneb ordered 18:48 Pt reevaluated, no improvement after Duonebs X 3 and Solumedrol. Scribe Attestation: Documented by Zafar James, acting as a scribe for Shannon Gupta MD Provider Scribe Attestation: All medical record entries made by the Scribe were at my direction and personally dictated by me. I have reviewed the chart and agree that the record accurately reflects my personal performance of the history, physical exam, medical decision making, and the department course for this patient. I have also personally directed, reviewed, and agree with the discharge instructions and disposition. Disposition - Clinical Impression Clinical Impression: COPD exacerbation - Patient ED Disposition Is Patient to be Admitted: Yes - Disposition Disposition: Routine/Home Disposition Time: 19:00 Condition: STABLE Prescriptions: Albuterol HFA [Ventolin HFA 90 mcg/actuation (8 g)] 2 puff IH [id number] PRN #1 bottle PRN Reason: Shortness Of Breath Albuterol 0.083% [Albuterol 0.083% Inhal Kasandra (2.5 mg/3 ml) UD] 3 ml IH Q6H PRN # 30 neb PRN Reason: Shortness Of Breath Nebulizer [Compact Compressor Nebulizer] 1 dev XX PRN PRN #1 dev PRN Reason: Shortness Of Breath Prednisone 50 mg PO DAILY #4 tab - Pt Status Changed To: Hospital Disposition Of: Observation - POA Present On Arrival: None
--- NOTE | 2017-03-25 19:59 | CP.PCM.HP ---
History of Present Illness - History of Present Illness History of Present Illness: PMD: [facility](Dr Conn) History taken from patient Full code 72 y/o female with a history of COPD who presented to the ED c/o shortness of breath for the past 3-4 days unrelieved by Ventolin at home. Patient also complains of a nonproductive cough but denies fever, chest pain, or palpitations. She admits Hx of asthma/COPD usually controlled with PRN Inh at home. As per patient she has been using Inhaler every 3-4 h for the past 2 days with only temporary improvement. Denies fever, vomiting, diarrhea, sick contacts , recent traveling, headache. She needed multiple treatment at ED for symptomatic relief and is decided to be admitted to hosp for obs. At the time of my exam patient was in not acute distress, speaking in full sentences and SOB markedly improved. ED course: VS: upon arriving to ED, HR, temp, O2sat all WNL. BP 178/100 at the time of exam after treatments, HR 102, BP 151/81, Rest WNL CBC/CMP unremarkable EKG: Sinus rhythm. No acute ischemic changes. Old ischemia presented also on previous EKG(Pending report) CXR: No active disease Meds: Duonebs X3 Solumedrol 125 mg IV once PMHx: Asthma/COPD SHx: Former smoker(quit 2 m/a) FHx: Non contributory Present on Admission - Present on Admission Any Indicators Present on Admission: No Review of Systems - Review of Systems All systems: reviewed and no additional remarkable complaints except - EENT Nose/Mouth/Throat: Nasal Congestion - Respiratory Respiratory: Cough, Dyspnea - Neurological Neurological: Tremor (Fine. B/L hands) Past Patient History - Past Medical History & Family History Past Medical History?: Yes - Past Social History Smoking Status: Former Smoker (Quit 2 M/A) Home Situation {Lives}: Friends - CARDIAC Hx Heart Attack: Yes - PULMONARY Hx Chronic Obstructive Pulmonary Disease (COPD): Yes - NEUROLOGICAL Hx Neurological Disorder: No - HEENT Hx HEENT Problems: No - RENAL Hx Chronic Kidney Disease: No - ENDOCRINE/METABOLIC Hx Endocrine Disorders: No - HEMATOLOGICAL/ONCOLOGICAL Hx Blood Disorders: No - INTEGUMENTARY Hx Dermatological Problems: No - MUSCULOSKELETAL/RHEUMATOLOGICAL Hx Musculoskeletal Disorders: No Hx Falls: No - GASTROINTESTINAL Hx Gastrointestinal Disorders: No - GENITOURINARY/GYNECOLOGICAL Hx Genitourinary Disorders: Yes (Hx of rectal/bladder prolapse) - PSYCHIATRIC Hx Psychophysiologic Disorder: No Hx Substance Use: No - SURGICAL HISTORY Hx Hysterectomy: Yes Hx Tonsillectomy: Yes - ANESTHESIA Hx Anesthesia: Yes Hx Anesthesia Reactions: No Meds Home Medications: Home Medication List Medication Instructions Recorded Confirmed Type Albuterol 0.083% [Albuterol 0.083% 3 ml IH Q6H PRN #30 neb 03/25/17 Rx Inhal Kasandra (2.5 mg/3 ml) UD] Albuterol HFA [Ventolin HFA 90 2 puff IH [id number] PRN #1 bottle 03/25/17 Rx mcg/actuation (8 g)] Nebulizer [Compact Compressor 1 dev XX PRN PRN #1 dev 03/25/17 Rx Nebulizer] Prednisone 50 mg PO DAILY #4 tab 03/25/17 Rx Allergies/Adverse Reactions: Allergies Allergy/AdvReac Type Severity Reaction Status Date / Time No Known Allergies Allergy Verified 08/13/16 15:45 Physical Exam - Constitutional Appears: Non-toxic, No Acute Distress - Head Exam Head Exam: NORMAL INSPECTION - Eye Exam Eye Exam: EOMI, PERRL - ENT Exam ENT Exam: Mucous Membranes Moist, Normal Oropharynx - Respiratory Exam Respiratory Exam: Decreased Breath Sounds (Slightly. B/L), Clear to Auscultation Bilateral. absent: Rales, Rhonchi, Wheezes - Cardiovascular Exam Cardiovascular Exam: REGULAR RHYTHM, +S1, +S2, Systolic Murmur (2/6 aortic) - GI/Abdominal Exam GI & Abdominal Exam: Normal Bowel Sounds, Soft. absent: Guarding, Organomegaly , Rebound - Extremities Exam Extremities exam: Positive for: normal capillary refill. Negative for: calf tenderness, joint swelling, pedal edema - Neurological Exam Neurological exam: Alert, Normal Gait, Oriented x3 - Psychiatric Exam Psychiatric exam: Normal Affect, Normal Mood - Skin Skin Exam: Intact, Normal Color, Warm Results - Vital Signs Recent Vital Signs: Last Vital Signs Temp 98.2 F 03/25/17 19:50 Pulse 102 H 03/25/17 19:50 Resp 20 03/25/17 19:50 BP 151/81 H 03/25/17 19:50 Pulse Ox 95 03/25/17 19:50 - Labs Result Diagrams: 03/25/17 15:30 03/25/17 15:30 Labs: Laboratory Results - last 24 hr 03/25/17 03/25/17 15:30 15:30 WBC 7.3 RBC 4.64 Hgb 14.5 Hct 43.2 MCV 93.1 D MCH 31.2 H MCHC 33.5 RDW 13.5 Plt Count 275 MPV 9.0 Neut % (Auto) 68.8 Lymph % (Auto) 17.7 L Story % (Auto) 8.3 Eos % (Auto) 4.5 H Baso % (Auto) 0.7 Neut # 5.0 Lymph # 1.3 Story # 0.6 Eos # 0.3 Baso # 0.0 Sodium 143 Potassium 4.0 Chloride 105 Carbon Dioxide 26 Anion Gap 16 BUN 9 Creatinine 0.6 L Est GFR ( Amer) > 60 Est GFR (Non-Af Amer) > 60 Random Glucose 98 Calcium 9.6 Total Bilirubin 0.4 AST 30 ALT 36 Alkaline Phosphatase 72 Total Protein 7.2 Albumin 4.5 Globulin 2.7 Albumin/Globulin Ratio 1.7 Assessment & Plan - Assessment and Plan (Free Text) Assessment: 72 y/o F with PMHx of COPD admitted for COPD exacerbation. COPD exacerbation -Worsening SOB for 4 days -Failed home treatment -CXR no active disease -CBC/CMP unremarkable -S/P Duonebs x3 and Solumedrol 125 mg IV at ED -Stable at the time of exam and markedly improved -Start Duonebs q4h PRN for SOB -Start Prednisone 40 mg daily -C/W Advair diskus daily(home treatment) -Afebrile. NO sputum production. Not a candidate for Abx at this time -Counseled about the importance of avoiding smoking. -Admit to Med-Sx for obs Elevated BP without diagnosis of HTN -B/p noticed slightly elevated -No previous diagnosis of HTN as per patient -CMP WNL -Monitor Abnormal EKG -Old ischemia on EKG/ No changes to previous one(Pending report) -Tobacco abuse for many years -Not on any secondary prevention treatment -Consider cardiology consult or F/U as outpatient Prophylactic measures -Lovenox 40 mg SQ daily
[2017-03-25] MEDS ORDERED: Albuterol 0.083% Inhal Sol (2.5 mg/3 mL) UD NEB PRN ×2 (20:46→21:00)
[2017-03-25] MEDS: Albuterol-Ipratrop 3 mg / 0.5 (3 ml) UD INH PRN (22:29)
[2017-03-25] MEDS: Fluticasone-Salmeterol 250-50mcg Diskus IH SCH ×2 (22:49→22:52)
[2017-03-26] MEDS: Albuterol-Ipratrop 3 mg / 0.5 (3 ml) UD INH PRN ×3 (02:50→15:57)
[2017-03-26 06:31] LABS: MEAN CELL VOLUME 94.3 fl (81.0-99.0); MEAN CORPUSCULAR HEMOGLOBIN 31.4 pg (27.0-31.0); MEAN CORPUSCULAR HGB CONC 33.3 g/dL (33.0-37.0); RBC 4.46 Mil/uL (3.80-5.20); RED CELL DISTRIBUTION WIDTH 13.2 % (11.5-14.5); WHITE BLOOD COUNT 10.5 K/uL (4.8-10.8)
[2017-03-26 06:59] LABS: BLOOD UREA NITROGEN 9 mg/dl (7-17); CALCIUM 9.6 mg/dL (8.4-10.2); GFR AFRICAN-AMERICAN > 60; GFR NON-AFRICAN AMERICAN > 60
[2017-03-26 08:09] VITALS: RESP 20
[2017-03-26] MEDS: Fluticasone-Salmeterol 250-50mcg Diskus IH SCH (08:30)
[2017-03-26] MEDS ORDERED: Enoxaparin 40 mg Syringe SC SCH (09:00)
--- NOTE | 2017-03-26 10:27 | CP.PCM.DIS ---
Addendum entered and electronically signed by Kisha Colorado MD 03/26/17 17:12: Im notified by nurse that pharmacy from hospital states that Qvar is not covered by patient's insurance. Will eprescribe Flovent to patient's other pharmacy [facility] Original Note: Provider - Provider Date of Admission: 03/25/17 18:50 Attending physician: Cora Funes MD Time Spent in preparation of Discharge (in minutes): 30 Hospital Course - Lab Results Lab Results: Most Recent Lab Values WBC 10.5 K/uL (4.8-10.8) 03/26/17 06:05 RBC 4.46 Mil/uL (3.80-5.20) 03/26/17 06:05 Hgb 14.0 g/dL (12.0-16.0) 03/26/17 06:05 Hct 42.1 % (34.0-47.0) 03/26/17 06:05 MCV 94.3 fl (81.0-99.0) 03/26/17 06:05 MCH 31.4 pg (27.0-31.0) H 03/26/17 06:05 MCHC 33.3 g/dL (33.0-37.0) 03/26/17 06:05 RDW 13.2 % (11.5-14.5) 03/26/17 06:05 Plt Count 259 K/uL (130-400) 03/26/17 06:05 MPV 9.0 fl (7.2-11.7) 03/25/17 15:30 Neut % (Auto) 68.8 % (50.0-75.0) 03/25/17 15:30 Lymph % (Auto) 17.7 % (20.0-40.0) L 03/25/17 15:30 [place] % (Auto) 8.3 % (0.0-10.0) 03/25/17 15:30 Eos % (Auto) 4.5 % (0.0-4.0) H 03/25/17 15:30 Baso % (Auto) 0.7 % (0.0-2.0) 03/25/17 15:30 Neut # 5.0 K/uL (1.8-7.0) 03/25/17 15:30 Lymph # 1.3 K/uL (1.0-4.3) 03/25/17 15:30 [place] # 0.6 K/uL (0.0-0.8) 03/25/17 15:30 Eos # 0.3 K/uL (0.0-0.7) 03/25/17 15:30 Baso # 0.0 K/uL (0.0-0.2) 03/25/17 15:30 Sodium 141 mmol/l (132-148) 03/26/17 06:05 Potassium 4.1 MMOL/L (3.6-5.0) 03/26/17 06:05 Chloride 104 mmol/L (98-107) 03/26/17 06:05 Carbon Dioxide 26 mmol/L (22-30) 03/26/17 06:05 Anion Gap 15 (10-20) 03/26/17 06:05 BUN 9 mg/dl (7-17) 03/26/17 06:05 Creatinine 0.5 mg/dl (0.7-1.2) L 03/26/17 06:05 Est GFR ( Amer) > 60 03/26/17 06:05 Est GFR (Non-Af Amer) > 60 03/26/17 06:05 Random Glucose 153 mg/dL (65-105) H 03/26/17 06:05 Calcium 9.6 mg/dL (8.4-10.2) 03/26/17 06:05 Total Bilirubin 0.4 mg/dl (0.2-1.3) 03/25/17 15:30 AST 30 U/L (14-36) 03/25/17 15:30 ALT 36 U/L (9-52) 03/25/17 15:30 Alkaline Phosphatase 72 U/L (38-126) 03/25/17 15:30 Total Protein 7.2 G/DL (6.3-8.2) 03/25/17 15:30 Albumin 4.5 g/dL (3.5-5.0) 03/25/17 15:30 Globulin 2.7 gm/dL (2.2-3.9) 03/25/17 15:30 Albumin/Globulin Ratio 1.7 (1.0-2.1) 03/25/17 15:30 - Hospital Course Hospital Course: 72 y/o female with a history of COPD who presented to the ED c/o shortness of breath for the past 3-4 days unrelieved by Ventolin at home. Patient also complains of a nonproductive cough but denies fever, chest pain, or palpitations. She admits Hx of asthma/COPD usually controlled with PRN Inh at home. As per patient she has been using Inhaler every 3-4 h for the past 2 days with only temporary improvement. Denies fever, vomiting, diarrhea, sick contacts , recent traveling, headache. She needed multiple treatment at ED for symptomatic relief and is decided to be admitted to hosp for obs. During admission SOB subsided with douneb x3 in Ed and methyldprednisolone 125 mg IV, CXR no active disease. Pt asymptomatic today, denies SOB, wheezing, using 02 NC PRN. Walker test with oxymeter done. no O2 needed for home. pt cleared to be discharged and agree to be discharged after dinner after discussion with social work program coordinator ( economical reason). Will have f/u with a new PMD. As per patient she wont go to clinic [facility] because states her insurance is not accepted in or clinic anymore. Reported side effects with Spiriva, Incruse, Combivent ( visual side effects, burning on arms). Pt discharged with Qvar, prednisone 10 mg Po x 3 days, Started in new med for HTN ( Hctz 12.5). On records different visits to clinic and hospital BP elevated.Pt able to walk around the room. PT order DC after discusion with Dr Mateus Elizalde. Diagnosis 72 y/o F with PMHx of COPD admitted for COPD exacerbation. 1) COPD exacerbation -resolved -CXR no active disease -continue prednisone 10 mg po daily x 3 days -Qvar (40 mcg) 1 Puff BIC 2) HTN esential -new diagnosis -Started HCTZ 12.5 mg daily Discharge Exam - Head Exam Head Exam: NORMAL INSPECTION - Eye Exam Eye Exam: Normal appearance - Respiratory Exam Respiratory Exam: Clear to PA & Lateral, NORMAL BREATHING PATTERN. absent: Rales, Rhonchi - Cardiovascular Exam Cardiovascular Exam: REGULAR RHYTHM, +S1, +S2 - GI/Abdominal Exam GI & Abdominal Exam: Normal Bowel Sounds, Soft. absent: Tenderness - Extremities Exam Extremities exam: normal inspection - Neurological Exam Neurological exam: Alert, Oriented x3 - Psychiatric Exam Psychiatric exam: Anxious, Normal Affect - Skin Skin Exam: Intact Discharge Plan - Discharge Medications Prescriptions: Beclomethasone Dipropionate [Qvar 40 mcg] 1 puff IH BID #1 aer.w.adap hydroCHLOROthiazide [Microzide] 12.5 mg PO DAILY #30 cap predniSONE [Prednisone] 10 mg PO DAILY 3 Days #3 tab - Follow Up Plan Condition: STABLE Disposition: HOME/ ROUTINE Instructions: COPD (Chronic Obstructive Pulmonary Disease) (DC) Additional Instructions: -Follow up [facility] in 7 days Referrals: [facility] [place] [Outside]
[2017-03-26 16:34] VITALS: PULSE 88; TEMP 98.3; O2SAT 93
[2017-03-26 16:56] VITALS: BP 135/69
--- NOTE | 2017-03-27 18:36 | CARD ---
APPROVED REPORT EKG Measurement Heart [id number] <Conclusion> Normal sinus rhythm Left anterior fascicular block Septal infarct, age undetermined Inferior infarct, age undetermined Abnormal ECG
== END 2017-03-26 18:05 | disposition home or self-care (01) ==
LOC: H.ER 14:19 → H.ERHOLD 18:50 → H.MEDSURG1 21:34
PROVIDERS: ADMIT Family Medicine Geriatric Medicine; ATTEND Family Medicine Geriatric Medicine
DX: J44.1 Chronic obstructive pulmonary disease with (acute) exacerbation (principal); I10 Essential (primary) hypertension; R94.31 Abnormal electrocardiogram [ECG] [EKG]; I25.2 Old myocardial infarction; Z79.51 Long term (current) use of inhaled steroids; Z87.891 Personal history of nicotine dependence
CPT/HCPCS: 36415; 71045; 80048; 80053; 85025; 85027; 87040; 93005; 94618; 94640; 96374; 99284; G0378; J2930

== ENCOUNTER 2017-04-01 23:16 | Observation (INO) | payer MEDICARE, MEDICAID ==
[2017-04-01 23:16] VITALS: BMI 27.4
[2017-04-01] MEDS ORDERED: Albuterol-Ipratrop 3 mg / 0.5 (3 ml) UD INH STA ×3 (23:48→23:49)
[2017-04-01] MEDS ORDERED: Albuterol-Ipratrop 3 mg / 0.5 (3 ml) UD ONE (23:53)
--- NOTE | 2017-04-02 00:17 | ED PDOC ---
HPI: SOB/CHF/COPD Time Seen by Provider: 04/01/17 23:28 Chief Complaint (Nursing): Shortness Of Breath Chief Complaint (Provider): Shortness Of Breath History Per: Patient History/Exam Limitations: no limitations Onset/Duration Of Symptoms: Days (x 1 week ) Current Symptoms Are (Timing): Still Present Additional Complaint(s): 72 year old female with a history of asthma and COPD presents to the ED complaining of shortness of breath. Reports has has not felt well since being discharged from the ED one week ago. Has not been using medications as prescribed due to concern about glaucoma. States she has chronic back pain and arm pain for months that occasionally exacerbates and is worse today. She denies any trauma. PMD: none provided Past Medical History Reviewed: Historical Data, Nursing Documentation, Vital Signs Vital Signs: Last Vital Signs Temp 98.2 F 04/02/17 04:19 Pulse 85 04/02/17 04:19 Resp 16 04/02/17 04:19 BP 148/80 04/02/17 04:19 Pulse Ox 92 L 04/02/17 04:19 - Medical History PMH: COPD Denies: HIV, Chronic Kidney Disease - Surgical History Surgical History: Tonsillectomy - Family History Family History: States: Unknown Family Hx - Home Medications Home Medications: Ambulatory Orders Medication Instructions Recorded Albuterol HFA [Ventolin HFA 90 2 puff IH [id number] #30 puff 08/14/16 mcg/actuation (8 g)] hydroCHLOROthiazide [Microzide] 12.5 mg PO DAILY #30 cap 03/26/17 - Allergies Allergies/Adverse Reactions: Allergies Allergy/AdvReac Type Severity Reaction Status Date / Time No Known Allergies Allergy Verified 04/01/17 23:21 Review of Systems ROS Statement: Except As Marked, All Systems Reviewed And Found Negative Respiratory: Positive for: Shortness of Breath Musculoskeletal: Positive for: Arm Pain (chronic), Back Pain (chronic) Physical Exam - Reviewed Nursing Documentation Reviewed: Yes Vital Signs Reviewed: Yes - Physical Exam Appears: Positive for: Non-toxic, No Acute Distress Head Exam: Positive for: ATRAUMATIC, NORMOCEPHALIC Skin: Positive for: Normal Color, Warm, Dry Eye Exam: Positive for: EOMI, Normal appearance, PERRL Neck: Positive for: Normal, Painless ROM, Supple Cardiovascular/Chest: Positive for: Regular Rate, Rhythm. Negative for: Murmur Respiratory: Positive for: Decreased Breath Sounds (bilaterally), Wheezing ( faint), Respiratory Distress (mild) - Laboratory Results Result Diagrams: 04/02/17 00:18 04/02/17 00:18 - ECG O2 Sat by Pulse Oximetry: 94 (RA) Pulse Ox Interpretation: Normal Medical Decision Making Medical Decision Making: Time: 23:48 Impression: COPD exacerbation Initial Plan: --VBG shock panel --EKG --BMP --Troponin I --CBC with differentials --Chest x-ray --Duoneb 3 ml INH --Duoneb 3 ml INH --Duoneb 3 ml INH --Toradol 30 mg IVP --peak flow pre/post --peak flow pre/post --Influenza AB Influenza AB --results are negative. Patient's breathing is mildly improved. She is moving air better but still has a significant wheeze. Patient does not feel better. Consulted family practice resident. Will be admitted to observation treatment of asthma exacerbation to the service of Dr. Funes. ----- Scribe Attestation: Documented by Heather Carlin, acting as a scribe for Homero Whitehead MD. Provider Scribe Attestation: All medical record entries made by the Scribe were at my direction and personally dictated by me. I have reviewed the chart and agree that the record accurately reflects my personal performance of the history, physical exam, medical decision making, and the department course for this patient. I have also personally directed, reviewed, and agree with the discharge instructions and disposition. Disposition - Clinical Impression Clinical Impression: COPD exacerbation - Patient ED Disposition Is Patient to be Admitted: Yes - Disposition Disposition Time: 02:00 Condition: STABLE Patient Signed Over To: Cora Funes - Pt Status Changed To: Hospital Disposition Of: Observation
[2017-04-02 00:22] LABS: BASO # 0.1 K/uL (0.0-0.2); BASO % 0.6 % (0.0-2.0); HEMOGLOBIN 14.6 g/dL (12.0-16.0); LYMPH # 1.5 K/uL (1.0-4.3); LYMPH % 12.2 % (20.0-40.0); MEAN CELL VOLUME 93.7 fl (81.0-99.0); MEAN CORPUSCULAR HEMOGLOBIN 30.8 pg (27.0-31.0); MEAN CORPUSCULAR HGB CONC 32.8 g/dL (33.0-37.0); MONO # 0.9 K/uL (0.0-0.8); MONO % 6.8 % (0.0-10.0); NEUT # 9.1 K/uL (1.8-7.0); NEUT % 72.4 % (50.0-75.0); RBC 4.76 Mil/uL (3.80-5.20); WHITE BLOOD COUNT 12.6 K/uL (4.8-10.8)
[2017-04-02 00:25] LABS: VENOUS BLOOD GAS BASE EXCESS 6.1 mmol/L (0.0-2.0); VENOUS BLOOD GAS PCO2 49 mmHg (40-60); VENOUS BLOOD GAS PO2 33 mm/Hg (30-55); VENOUS BLOOD PH 7.42 (7.32-7.43)
[2017-04-02 00:57] LABS: BLOOD UREA NITROGEN 17 mg/dl (7-17); CALCIUM 9.9 mg/dL (8.4-10.2); GFR AFRICAN-AMERICAN > 60; GFR NON-AFRICAN AMERICAN > 60
[2017-04-02] MEDS ORDERED: Albuterol-Ipratrop 3 mg / 0.5 (3 ml) UD INH STA (02:15)
[2017-04-02] MEDS ORDERED: Magnesium Sulfate 2 gm/50 ml 2 GM/50 ML BAG IVPB ONE (02:16)
[2017-04-02] MEDS ORDERED: Albuterol-Ipratrop 3 mg / 0.5 (3 ml) UD ONE (02:17)
[2017-04-02] MEDS ORDERED: Magnesium Sulfate 2 gm/50 ml 2 GM/50 ML BAG ONE (02:18)
[2017-04-02] MEDS ORDERED: Potassium Chloride 20 mEq ER Tab PO ONE ×2 (03:06→03:40)
--- NOTE | 2017-04-02 03:13 | CP.PCM.HP ---
Addendum entered and electronically signed by Tony Garvey MD 04/02/17 10:16: Patient seen and examined at bedside. No acute events overnight. Patient NAD and reports feeling a little better w/ duoneb treatments. Patient tolerating PO and voiding freely. Original Note: History of Present Illness - History of Present Illness History of Present Illness: PMD: [facility](Dr Conn) History taken from patient and medical records Full code 72 y/o female with a history of COPD and HTN, presented to the ED c/o worsening shortness of breath for the past 3 days unrelieved by home treatment. Patient was recently admitted to [facility] for COPD exacerbation and discharge 1 week ago. Patient states that she was "ok" for the first 3 days after discharge untill the SOB worsened again. Denies productive cough fever, chest pain, or palpitations. As per patient she has been using her Ventolin inh only since discharge because the Flovent inh that was prescribed to her the day of discharge from hosp, worsen her eyes symptoms and reports being diagnosed in the past with B/L macular degeneration. She however finished Prednisone PO for 3 more days after DC. Denies fever, vomiting, diarrhea, sick contacts, recent traveling, headache, dizziness. Patient states that when she doesnt feel short of breath during this exacerbations, she is functional and is able to climb stairs multiple times a day and walk freely without SOB(Patient lives on a 3rd floor). Also denies LE edema. She needed multiple treatment at ED for symptomatic relief and is decided to be admitted to [facility] for obs and further management. She states taking HCTZ as prescribed for HTN since discharge. At the time of my exam patient was in not acute distress, speaking in full sentences, still SOB, but improved. ED course: VS: HR 89, temp 98, O2sat 94, BP 168/98, RR 16 CBC/CMP: Slight elevation of WBC, Mild hypokalemia. VBG: PH/Lactate WNL CXR: No significant interval change noticed to previous CXR from last admission that was reported by radiologist as(NO active disease). Meds: Duonebs x4 Solumedrol 125 mg IV once Mg 2g PMHx: Asthma/COPD SHx: Chrnic Smoker: Patient story about her smoking habits varies from 1 admission to another and during interview. Appears to be cutting down the amount of cig/day to 1 or 2 day. Patient lives alone FHx: Non contributory Present on Admission - Present on Admission Any Indicators Present on Admission: No Review of Systems - Review of Systems All systems: reviewed and no additional remarkable complaints except - EENT Eyes: Other (eye burning with the use of some inhalers) - Respiratory Respiratory: Cough (sporadic), Dyspnea - Musculoskeletal Musculoskeletal: Back Pain Past Patient History - Past Medical History & Family History Past Medical History?: Yes - Past Social History Smoking Status: Light Smoker < 10 Cigarettes Daily - PULMONARY Hx Chronic Obstructive Pulmonary Disease (COPD): Yes - NEUROLOGICAL Hx Neurological Disorder: No - HEENT Hx Macular Degeneration: Yes - RENAL Hx Chronic Kidney Disease: No - ENDOCRINE/METABOLIC Hx Endocrine Disorders: No - HEMATOLOGICAL/ONCOLOGICAL Hx Human Immunodeficiency Virus (HIV): No - INTEGUMENTARY Hx Dermatological Problems: No - MUSCULOSKELETAL/RHEUMATOLOGICAL Hx Falls: No - GASTROINTESTINAL Hx Gastrointestinal Disorders: No - GENITOURINARY/GYNECOLOGICAL Hx Genitourinary Disorders: Yes (Hx of rectal/bladder prolapse) - PSYCHIATRIC Hx Substance Use: No - SURGICAL HISTORY Hx Tonsillectomy: Yes - ANESTHESIA Hx Anesthesia: Yes Hx Anesthesia Reactions: No Meds Allergies/Adverse Reactions: Allergies Allergy/AdvReac Type Severity Reaction Status Date / Time No Known Allergies Allergy Verified 04/01/17 23:21 Physical Exam - Constitutional Appears: Non-toxic, In Acute Distress (MIld due to SOB) - Head Exam Head Exam: ATRAUMATIC, NORMAL INSPECTION - Eye Exam Eye Exam: EOMI Pupil Exam: PERRL - ENT Exam ENT Exam: Mucous Membranes Moist - Neck Exam Neck exam: Positive for: Normal Inspection - Respiratory Exam Respiratory Exam: Decreased Breath Sounds (Slightly, in both lungs), Wheezes (B/ L diffuse), NORMAL BREATHING PATTERN. absent: Accessory Muscle Use, Rales - Cardiovascular Exam Cardiovascular Exam: REGULAR RHYTHM, +S1, +S2 - GI/Abdominal Exam GI & Abdominal Exam: Normal Bowel Sounds, Soft. absent: Guarding, Rebound, Tenderness - Extremities Exam Extremities exam: Positive for: normal capillary refill. Negative for: joint swelling, pedal edema, tenderness - Neurological Exam Neurological exam: Alert, Normal Gait, Oriented x3 - Psychiatric Exam Psychiatric exam: Normal Affect, Normal Mood - Skin Skin Exam: Normal Color, Warm Results - Vital Signs Recent Vital Signs: Last Vital Signs Temp 98.0 F 04/01/17 23:21 Pulse 89 04/01/17 23:21 Resp 16 04/01/17 23:21 BP 168/98 H 04/01/17 23:21 Pulse Ox 94 L 04/02/17 02:41 - Labs Result Diagrams: 04/02/17 00:18 04/02/17 00:18 Labs: Laboratory Results - last 24 hr 04/02/17 04/02/17 04/02/17 00:18 00:18 00:18 WBC 12.6 H RBC 4.76 Hgb 14.6 Hct 44.6 MCV 93.7 MCH 30.8 MCHC 32.8 L RDW 13.0 Plt Count 264 MPV 9.0 Neut % (Auto) 72.4 Lymph % (Auto) 12.2 L Doddridge % (Auto) 6.8 Eos % (Auto) 8.0 H Baso % (Auto) 0.6 Neut # (Auto) 9.1 H Lymph # (Auto) 1.5 Doddridge # (Auto) 0.9 H Eos # (Auto) 1.0 H Baso # (Auto) 0.1 pO2 VBG pH VBG pCO2 VBG HCO3 VBG Total CO2 VBG O2 Sat (Calc) VBG Base Excess VBG Potassium Glucose Lactate FiO2 Sodium 141 Potassium 3.4 L Chloride 100 Carbon Dioxide 30 Anion Gap 14 BUN 17 Creatinine 0.6 L Est GFR ( Amer) > 60 Est GFR (Non-Af Amer) > 60 Random Glucose 118 H Calcium 9.9 Troponin I 0.0160 Venous Blood Potassium Influenza Typ A,B (EIA) Negative for flu a/b 04/02/17 00:21 WBC RBC Hgb Hct MCV MCH MCHC RDW Plt Count MPV Neut % (Auto) Lymph % (Auto) Doddridge % (Auto) Eos % (Auto) Baso % (Auto) Neut # (Auto) Lymph # (Auto) Doddridge # (Auto) Eos # (Auto) Baso # (Auto) pO2 33 VBG pH 7.42 VBG pCO2 49 VBG HCO3 28.8 VBG Total CO2 33.3 H VBG O2 Sat (Calc) 69.7 H VBG Base Excess 6.1 H VBG Potassium 3.4 L Glucose 120 H Lactate 1.1 FiO2 21.0 Sodium 140.0 Potassium Chloride 102.0 Carbon Dioxide Anion Gap BUN Creatinine Est GFR ( Amer) Est GFR (Non-Af Amer) Random Glucose Calcium Troponin I Venous Blood Potassium 3.4 L Influenza Typ A,B (EIA) Assessment & Plan - Assessment and Plan (Free Text) Assessment: 72 y/o F with PMHx of COPD and HTN admitted for COPD exacerbation. COPD exacerbation -Worsening SOB for 3 days(recently DC from hosp 2 week ago) -Noncompliant with recommended therapy due to fear of side effects -CXR no evident active disease(Report pending) -S/P Duonebs x4 and Solumedrol 125 mg IV and Mg 2g at ED -Stable at the time of exam and improved -Start Duonebs q4h Sched for SOB -Patient recently finished 5 days course of PO Prednisone less than 1 week ago -Since patient has Hx of macular degeneration/eye symptoms that worsen with LAMA and LABA/Steroids combination I think that patient might benefit from LABA only since as per literature doesnt seem to exacerbate any intraocular pathology. Our hospital doesnt have available any LABA inh at this time. Will recommend as home treatment option if patient able to afford/insurance covers it. -Restarted on Advair diskus: Patient states Advair gave her the least SE of all maintenance inh prescribed to her in the past and that she is willing to take it -Afebrile. NO sputum production. Not a candidate for Abx at this time -Counseled about the importance of avoiding smoking. -Admit to Med-Sx for obs HTN chronic, unknown -Bp elevated at ED(Patient missed today's dose of HCTZ) -C/W HCTZ 12.5mg daily -Monitor Leukocytosis acute, mild -Likely side effect of recent steroid use -Monitor Hypokalemia acute, mild -K=3.4 -Poss side effect of recent Inhaled [id number] treatments. -KCL 40 meq PO once -F/U repeat BMP today Prophylactic measures -Lovenox 40 mg SQ daily
[2017-04-02] MEDS ORDERED: Sodium Chloride 0.9% 1,000 ML IV SCH (03:15)
[2017-04-02] MEDS ORDERED: Artificial Tears Opht Soln OU PRN (03:51)
[2017-04-02] MEDS ORDERED: Albuterol-Ipratrop 3 mg / 0.5 (3 ml) UD INH SCH ×2 (04:00→06:00)
[2017-04-02 07:58] LABS: BASO % 0.3 % (0.0-2.0); EOS % 0.4 % (0.0-4.0); HEMOGLOBIN 13.8 g/dL (12.0-16.0); LYMPH # 0.4 K/uL (1.0-4.3); LYMPH % 4.1 % (20.0-40.0); MEAN CELL VOLUME 93.1 fl (81.0-99.0); MEAN CORPUSCULAR HEMOGLOBIN 31.4 pg (27.0-31.0); MEAN CORPUSCULAR HGB CONC 33.8 g/dL (33.0-37.0); MONO # 0.1 K/uL (0.0-0.8); MONO % 0.7 % (0.0-10.0); NEUT # 9.6 K/uL (1.8-7.0); NEUT % 94.5 % (50.0-75.0); PLATELET COUNT 267 K/uL (130-400); RBC 4.41 Mil/uL (3.80-5.20); RED CELL DISTRIBUTION WIDTH 13.1 % (11.5-14.5); WHITE BLOOD COUNT 10.2 K/uL (4.8-10.8)
[2017-04-02] MEDS: Albuterol-Ipratrop 3 mg / 0.5 (3 ml) UD INH SCH ×4 (08:00→15:54)
[2017-04-02 08:17] VITALS: RESP 20; TEMP 98.1
[2017-04-02 08:24] LABS: BLOOD UREA NITROGEN 13 mg/dl (7-17); CALCIUM 9.3 mg/dL (8.4-10.2); GFR AFRICAN-AMERICAN > 60; GFR NON-AFRICAN AMERICAN > 60
[2017-04-02] MEDS ORDERED: Fluticasone-Salmeterol 250-50mcg Diskus IH SCH (09:00)
--- NOTE | 2017-04-02 09:03 | CARD ---
APPROVED REPORT EKG Measurement Heart [id number] <Conclusion> Normal sinus rhythm Left axis deviation Incomplete right bundle branch block Inferior infarct, age undetermined Anterior infarct, age undetermined Abnormal ECG
[2017-04-02] MEDS: Enoxaparin 40 mg Syringe SC SCH ×2 (09:20→09:24)
--- NOTE | 2017-04-02 10:00 | RAD ---
HISTORY: sob COMPARISON: Chest radiograph dated 03/25/2017. FINDINGS: LUNGS: No active pulmonary disease. PLEURA: No significant pleural effusion identified, no pneumothorax apparent. CARDIOVASCULAR: Normal. OSSEOUS STRUCTURES: No significant abnormalities. VISUALIZED UPPER ABDOMEN: Normal. OTHER FINDINGS: None. IMPRESSION: No active disease.
[2017-04-02 10:55] LABS: BASOPHIL 1 % (0-2); LYMPHOCYTE 6 % (20-50); MONOCYTE 1 % (0-10); NEUTROPHIL 92 % (42-75); TOTAL CELLS COUNTED 100
[2017-04-02 10:56] LABS: PLATELET ESTIMATE NORMAL (NORMAL)
[2017-04-02 16:02] VITALS: BP 126/79; PULSE 96; O2SAT 94
[2017-04-02] MEDS ORDERED: Albuterol HFA 90 mcg/actuation (8 g) IH SCH (16:45)
--- NOTE | 2017-04-02 16:47 | CP.PCM.DIS ---
Provider - Provider Date of Admission: 04/02/17 02:00 Attending physician: Cora Funes MD Consults: 04/02/17 03:56 Social Work Referral Routine Comment: Physician Instructions: Reason For Exam: Lives alone/medications Time Spent in preparation of Discharge (in minutes): 15 Diagnosis - Discharge Diagnosis (1) COPD exacerbation Status: Acute Hospital Course - Lab Results Lab Results: Most Recent Lab Values WBC 10.2 K/uL (4.8-10.8) 04/02/17 07:42 RBC 4.41 Mil/uL (3.80-5.20) 04/02/17 07:42 Hgb 13.8 g/dL (12.0-16.0) 04/02/17 07:42 Hct 41.0 % (34.0-47.0) 04/02/17 07:42 MCV 93.1 fl (81.0-99.0) 04/02/17 07:42 MCH 31.4 pg (27.0-31.0) H 04/02/17 07:42 MCHC 33.8 g/dL (33.0-37.0) 04/02/17 07:42 RDW 13.1 % (11.5-14.5) 04/02/17 07:42 Plt Count 267 K/uL (130-400) 04/02/17 07:42 MPV 9.0 fl (7.2-11.7) 04/02/17 07:42 Neut % (Auto) 94.5 % (50.0-75.0) H 04/02/17 07:42 Lymph % (Auto) 4.1 % (20.0-40.0) L 04/02/17 07:42 Smyth % (Auto) 0.7 % (0.0-10.0) 04/02/17 07:42 Eos % (Auto) 0.4 % (0.0-4.0) 04/02/17 07:42 Baso % (Auto) 0.3 % (0.0-2.0) 04/02/17 07:42 Neut # (Auto) 9.6 K/uL (1.8-7.0) H 04/02/17 07:42 Lymph # (Auto) 0.4 K/uL (1.0-4.3) L 04/02/17 07:42 Smyth # (Auto) 0.1 K/uL (0.0-0.8) 04/02/17 07:42 Eos # (Auto) 0.0 K/uL (0.0-0.7) 04/02/17 07:42 Baso # (Auto) 0.0 K/uL (0.0-0.2) 04/02/17 07:42 Neutrophils % (Manual) 92 % (42-75) H 04/02/17 07:42 Lymphocytes % (Manual) 6 % (20-50) L 04/02/17 07:42 Monocytes % (Manual) 1 % (0-10) 04/02/17 07:42 Basophils % (Manual) 1 % (0-2) 04/02/17 07:42 Platelet Estimate Normal (NORMAL) 04/02/17 07:42 RBC Morphology Normal (NORMAL) 04/02/17 07:42 pO2 33 mm/Hg (30-55) 04/02/17 00:21 VBG pH 7.42 (7.32-7.43) 04/02/17 00:21 VBG pCO2 49 mmHg (40-60) 04/02/17 00:21 VBG HCO3 28.8 mmol/L 04/02/17 00:21 VBG Total CO2 33.3 mmol/L (22-28) H 04/02/17 00:21 VBG O2 Sat (Calc) 69.7 % (40-65) H 04/02/17 00:21 VBG Base Excess 6.1 mmol/L (0.0-2.0) H 04/02/17 00:21 VBG Potassium 3.4 mmol/L (3.6-5.2) L 04/02/17 00:21 Sodium 140.0 mmol/L (132-148) 04/02/17 00:21 Chloride 102.0 mmol/L (98-107) 04/02/17 00:21 Glucose 120 mg/dL (65-105) H 04/02/17 00:21 Lactate 1.1 mmol/L (0.7-2.1) 04/02/17 00:21 FiO2 21.0 % 04/02/17 00:21 Sodium 142 mmol/l (132-148) 04/02/17 07:42 Potassium 3.5 MMOL/L (3.6-5.0) L 04/02/17 07:42 Chloride 103 mmol/L (98-107) 04/02/17 07:42 Carbon Dioxide 28 mmol/L (22-30) 04/02/17 07:42 Anion Gap 15 (10-20) 04/02/17 07:42 BUN 13 mg/dl (7-17) 04/02/17 07:42 Creatinine 0.5 mg/dl (0.7-1.2) L 04/02/17 07:42 Est GFR ( Amer) > 60 04/02/17 07:42 Est GFR (Non-Af Amer) > 60 04/02/17 07:42 Random Glucose 165 mg/dL (65-105) H 04/02/17 07:42 Calcium 9.3 mg/dL (8.4-10.2) 04/02/17 07:42 Troponin I 0.0160 ng/mL (0.00-0.120) 04/02/17 00:18 Venous Blood Potassium 3.4 mmol/L (3.6-5.2) L 04/02/17 00:21 Influenza Typ A,B (EIA) Negative for flu a/b (NEGATIVE) 04/02/17 00:18 - Hospital Course Hospital Course: 72 y/o woman with a pmh of COPD and HTN, presented to the ED c/o worsening shortness of breath for the past 3 days unrelieved by home treatment. Patient was recently admitted to [facility] for COPD exacerbation and discharge 1 week ago. Patient states that she was returning to baseline for the first 3 days after discharge until the SOB worsened again. Patient finished Prednisone PO course. Denies productive cough, fever, chest pain, palpitations, vomiting, diarrhea, sick contacts, recent traveling, headache, dizziness. She needed multiple treatment at ED for symptomatic relief. Patient given x1 magnesium and scheduled duoneb treatment. CXR show no active disease and EKG was NSR. Pharmacy called, patient has ventolin, flovent, and HCTZ. Patient to follow up w/ PMD in [facility]. - Date & Time of H&P Date of H&P: 04/02/17 Time of H&P: 16:46 Discharge Exam - Head Exam Head Exam: ATRAUMATIC, NORMAL INSPECTION - Eye Exam Eye Exam: Normal appearance - ENT Exam ENT Exam: Mucous Membranes Moist - Respiratory Exam Respiratory Exam: Clear to PA & Lateral, NORMAL BREATHING PATTERN. absent: Wheezes - Cardiovascular Exam Cardiovascular Exam: REGULAR RHYTHM - GI/Abdominal Exam GI & Abdominal Exam: Normal Bowel Sounds, Soft. absent: Distended, Tenderness - Extremities Exam Extremities exam: full ROM, normal inspection - Neurological Exam Neurological exam: Alert, Normal Gait, Oriented x3 - Skin Skin Exam: Dry, Intact, Normal Color, Warm Discharge Plan - Follow Up Plan Condition: STABLE Disposition: HOME/ ROUTINE Instructions: COPD (Chronic Obstructive Pulmonary Disease) (DC) Additional Instructions: [employer] for appointment follow ups: [phone] Referrals: [facility] [Outside] Reginald Conn MD [Family Provider] -
== END 2017-04-02 18:00 | disposition home or self-care (01) ==
LOC: H.ER 23:16 → H.ERHOLD 04-02 02:00 → H.MEDSURG1 04-02 04:31
PROVIDERS: ADMIT Family Medicine Geriatric Medicine; ATTEND Family Medicine Geriatric Medicine
DX: J44.1 Chronic obstructive pulmonary disease with (acute) exacerbation (principal); D72.829 Elevated white blood cell count, unspecified; H35.30 Unspecified macular degeneration; G89.29 Other chronic pain; E87.6 Hypokalemia; I10 Essential (primary) hypertension; F17.210 Nicotine dependence, cigarettes, uncomplicated; J45.909 Unspecified asthma, uncomplicated; Z91.19 Patient's noncompliance with other medical treatment and regimen
CPT/HCPCS: 71045; 80048; 82803; 84484; 85025; 87804; 93005; 94640; 96374; 96375; 99283; G0378; J1885; J2930; J7040